=== PATIENT | male | born 1950 | race Caucasian/White ===

== ENCOUNTER 2017-11-26 03:23 | Observation (INO) | payer MEDICARE, MEDICAID ==
[~2017-11-26] VITALS: Ht 177.8 cm; Wt 91.8 kg
[2017-11-26] MEDS ORDERED: FURO-150 PO (03:33)
[2017-11-26 03:59] LABS: BASOPHILS % (AUTO) 0.2 % (0-1); EOSINOPHILS # (AUTO) 0.1 X10'3 (0-0.9); EOSINOPHILS % (AUTO) 2.4 % (0-6); HEMATOCRIT 27.9 % (42.0-52.0); HEMOGLOBIN 9.8 g/dl (14.0-17.9); LYMPHOCYTES # (AUTO) 0.4 X10'3 (1.1-4.8); LYMPHOCYTES % (AUTO) 11.3 % (21-51); MEAN CORPUSCULAR HEMOGLOBIN 38.2 PG (27.0-31.0); MEAN CORPUSCULAR HGB CONC 35.2 % (33.0-36.5); MEAN CORPUSCULAR VOLUME 108.6 FL (78-98); MEAN PLATELET VOLUME 8.2 FL (7.4-10.4); MONOCYTES # (AUTO) 0.6 X10'3 (0-0.9); MONOCYTES % (AUTO) 15.1 % (2-12); NEUTROPHILS # (AUTO) 2.8 X10'3 (1.8-7.7); PLATELET COUNT 87 X10'3 (140-440); RED BLOOD COUNT 2.57 X10'6 (4.70-6.10); RED CELL DISTRIBUTION WIDTH 15.9 % (11.5-14.5); WHITE BLOOD COUNT 3.9 X10'3 (4.5-11.0)
[2017-11-26 04:06] LABS: INR 1.2 INR; PARTIAL THROMBOPLASTIN TIME 28 SECONDS (22-32); PROTHROMBIN TIME 12.7 SECONDS (9.0-12.0)
[2017-11-26 04:28] LABS: ALANINE AMINOTRANSFERASE 45 U/L (12-78); ALBUMIN 2.3 G/DL (3.4-5.0); ALKALINE PHOSPHATASE 143 IU/L (46-116); AMYLASE 48 U/L (25-115); ANION GAP 6 (8-16); ASPARTATE AMINO TRANSFERASE 55 U/L (10-37); BILIRUBIN,TOTAL 4.2 MG/DL (0.1-1.0); BLOOD UREA NITROGEN 22 MG/DL (7-18); BUN/CREATININE RATIO 23.7 (5.4-32.0); CALCIUM 8.1 MG/DL (8.5-10.1); CHLORIDE 113 MMOL/L (99-107); CREATININE 0.93 MG/DL (0.60-1.10); GLUCOSE 178 MG/DL (70-104); LIPASE 190 U/L (73-393); MAGNESIUM 1.9 MG/DL (1.5-2.4); POTASSIUM 4.2 MMOL/L (3.5-5.1); SODIUM 143 MMOL/L (135-145); TOTAL CARBON DIOXIDE 23.8 MMOL/L (24-32); eGFR 82 ML/MIN
[2017-11-26 04:44] LABS: ALBUMIN/GLOBULIN RATIO 0.7 (1.1-1.5); TOTAL PROTEIN 5.4 G/DL (6.4-8.2)
[2017-11-26] MEDS ORDERED: LIDOcaine 1.5% w/epinephrine 1:200,000 5ml ampul IJ ONE (05:00)
[2017-11-26] MEDS ORDERED: magnesium hydroxide 30ml (MOM) UD suspension PO PRN (05:05)
[2017-11-26] MEDS ORDERED: acetaminophen 325mg tablet PO PRN (05:05)
[2017-11-26] MEDS ORDERED: ondansetron/PF 4mg/2ml inj IV PRN (05:05)
[2017-11-26] MEDS ORDERED: potassium Cl 20 mEq SR tablet PO PRN ×2 (05:05)
[2017-11-26] MEDS ORDERED: magnesium Cl slow-release 64mg tablet PO PRN (05:05)
[2017-11-26] MEDS ORDERED: mag hydrox/Alum hydrox/simeth 30ml oral suspension PO PRN (05:05)
[2017-11-26] MEDS ORDERED: potassium Cl 40MEQ/NS 500ml 500 ML IV PRN ×2 (05:05)
[2017-11-26] MEDS ORDERED: magnesium 4gm in 100ml NS 100 ML IV PRN (05:05)
[2017-11-26] MEDS ORDERED: magnesium 2GM in 50ml NS 50 ML IV PRN (05:05)
[2017-11-26] MEDS ORDERED: RIBA200C13 PO ×2 (05:19)
[2017-11-26] MEDS ORDERED: FURO80TA87 PO (05:19)
[2017-11-26] MEDS ORDERED: OSC500T PO (05:19)
[2017-11-26] MEDS ORDERED: CEPH250T PO (05:19)
[2017-11-26] MEDS ORDERED: LACT10SO PO (05:19)
[2017-11-26] MEDS ORDERED: METO25TA6 PO (05:19)
[2017-11-26] MEDS ORDERED: SPIR100T5 PO (05:21)
[2017-11-26] MEDS ORDERED: albumin (Human) 5% 250 ML IV solution IV STA (05:52)
[2017-11-26] MEDS ORDERED: spironolactone 50 MG tablet PO ONE (06:30)
[2017-11-26] MEDS: K and/or MAG REPLACEMENT MC SCH (06:56)
[2017-11-26] MEDS: lactulose 20gm/30ml cup PO SCH ×3 (07:15→19:29)
[2017-11-26] MEDS: metoprolol tartrate 25mg tablet PO SCH ×2 (07:15→19:29)
[2017-11-26] MEDS: furosemide 40mg/4ml inj IV SCH (07:15)
[2017-11-26] MEDS: spironolactone 50 MG tablet PO SCH ×2 (07:21→08:04)
[2017-11-26 08:06] LABS: CLARITY,URINE Clear (Clear); COLOR,URINE Dark Yellow (Yellow); GLUCOSE, URINE Negative (Neg); KETONES,URINE Negative (Neg); LEUKOCYTE ESTERASE ,URINE Trace (Neg); NITRITES, URINE Negative (Neg); OCCULT BLOOD,URINE Negative (Neg); PH,URINE 5.5 (4.8-8.0); PROTEIN,URINE Negative (Neg); UROBILINOGEN,URINE >=8.0 E.U/dL (0.2-1.0)
[2017-11-26 08:11] LABS: UA COLLECTION TYPE URINAL
[2017-11-26 08:12] LABS: BACTERIA,URINE 3+ /HPF (Neg); RBC,URINE 0-2 /HPF (0-2); SQUAMOUS EPITHELIAL CELL,UR FEW /LPF (FEW)
[2017-11-26 08:15] LABS: BF MESOTHELIAL CELLS FEW; BF RBC COUNT 93 /CU MM; BF WBC COUNT 51 /CU MM (0-1000); BFAPPEAR HAZY; BFCOLOR YELLOW; BFVOLUME 20 ML; LYMPHOCYTES,BODY FLUID 27 %; MONOCYTES,BODY FLUID 31 %; NEUTROPHILS,BODY FLUID 42 %
[2017-11-26 08:16] LABS: GLUCOSE,BODY FLUID 184 MG/DL
[2017-11-26] MEDS ORDERED: spironolactone 25 MG tablet PO SCH (08:30)
[2017-11-26 08:31] LABS: TOTAL PROTEIN,BODY FLUID < 2.0 G/DL
[2017-11-26 19:30] VITALS: BP 102/53
[2017-11-27] VITALS: BP 94/60
[2017-11-27] MEDS: lactulose 20gm/30ml cup PO SCH ×3 (02:00→14:28)
[2017-11-27 04:10] LABS: HEMATOCRIT 26.5 % (42.0-52.0); HEMOGLOBIN 9.2 g/dl (14.0-17.9); MEAN CORPUSCULAR HEMOGLOBIN 37.6 PG (27.0-31.0); MEAN CORPUSCULAR HGB CONC 34.7 % (33.0-36.5); MEAN CORPUSCULAR VOLUME 108.5 FL (78-98); MEAN PLATELET VOLUME 8.5 FL (7.4-10.4); PLATELET COUNT 81 X10'3 (140-440); RED BLOOD COUNT 2.44 X10'6 (4.70-6.10); RED CELL DISTRIBUTION WIDTH 16.8 % (11.5-14.5); WHITE BLOOD COUNT 3.8 X10'3 (4.5-11.0)
[2017-11-27 04:26] LABS: ALBUMIN 2.2 G/DL (3.4-5.0); ANION GAP 7 (8-16); BLOOD UREA NITROGEN 19 MG/DL (7-18); BUN/CREATININE RATIO 22.6 (5.4-32.0); CALCIUM 8.3 MG/DL (8.5-10.1); CHLORIDE 109 MMOL/L (99-107); CREATININE 0.84 MG/DL (0.60-1.10); GLUCOSE 132 MG/DL (70-104); MAGNESIUM 1.8 MG/DL (1.5-2.4); SODIUM 141 MMOL/L (135-145); TOTAL CARBON DIOXIDE 25.3 MMOL/L (24-32); eGFR > 90 ML/MIN
[2017-11-27 04:49] LABS: PHOSPHORUS 3.2 MG/DL (2.3-4.5)
[2017-11-27 07:00] VITALS: BP 109/57
[2017-11-27] MEDS: furosemide 40mg/4ml inj IV SCH (07:54)
[2017-11-27] MEDS: metoprolol tartrate 25mg tablet PO SCH (07:55)
[2017-11-27] MEDS: K and/or MAG REPLACEMENT MC SCH (08:00)
[2017-11-27] MEDS ORDERED: spironolactone 50 MG tablet PO SCH (08:30)
[2017-11-27] MEDS ORDERED: SPIR50TA5 PO (08:53)
[2017-11-27] MEDS ORDERED: METO25TA6 PO (09:02)
[2017-11-27] MEDS ORDERED: FURO40TA4 PO (09:07)
[2017-11-28] MEDS ORDERED: furosemide 40mg tablet PO SCH (08:00)
== END 2017-11-27 15:00 | disposition home or self-care (01) ==
LOC: ER 03:23 → ED HOLD 05:02 → SUR 3N 14:36
PROVIDERS: ADMIT Family Medicine; ATTEND Family Medicine
DX: B18.2 Chronic viral hepatitis C (principal); R18.8 Other ascites; K72.90 Hepatic failure, unspecified without coma; C22.0 Liver cell carcinoma; D61.818 Other pancytopenia; D64.9 Anemia, unspecified; E83.51 Hypocalcemia; E43 Unspecified severe protein-calorie malnutrition; I10 Essential (primary) hypertension; I85.00 Esophageal varices without bleeding; K74.60 Unspecified cirrhosis of liver; R73.9 Hyperglycemia, unspecified; R74.0 Nonspecific elevation of levels of transaminase and lactic acid dehydrogenase [LDH]; Z85.820 Personal history of malignant melanoma of skin; Z89.411 Acquired absence of right great toe
CPT/HCPCS: 36415; 49083; 71045; 80048; 80053; 81001; 82140; 82150; 82945; 83036; 83690; 83735; 84100; 84157; 84484; 85025; 85027; 85610; 85730; 87070; 87077; 87088; 87186; 89051; 93005; 96374; 96375; 96376; 99285; G0378; J1940; J3490; P9045; 88108; 88305